=== PATIENT | male | born 1965 ===

== ENCOUNTER 2017-05-18 06:41 | Emergency (ER) | payer MEDICAID, OTHER ==
[2017-05-18 06:48] VITALS: BMI 39.1
[2017-05-18 06:50] VITALS: BP 143/88; PULSE 68; RESP 15; TEMP 98; O2SAT 98
--- NOTE | 2017-05-18 07:25 | ED PDOC ---
Lower Extremity Pain/Injury Time Seen by Provider: 05/18/17 07:05 Chief Complaint (Nursing): Lower Extremity Problem/Injury Chief Complaint (Provider): bilateral knee pain History Per: Patient History/Exam Limitations: no limitations Onset/Duration Of Symptoms: Other (x 3 years ) Additional Complaint(s): Kianna Begum is a 52 year old male, with no previous medical history, who presents to the ED with complaints of bilateral knee pain ongoing for 3 years worsening for the past 2 weeks after heavy lifting of marble approximately 1500- 2500 lbs. He denies any numbness or tingling and did not take anything for pain. PMD: none provided Past Medical History Reviewed: Historical Data, Nursing Documentation, Vital Signs Vital Signs: Last Vital Signs Temp 98.0 F 05/18/17 06:48 Pulse 68 05/18/17 06:48 Resp 15 05/18/17 06:48 BP 143/88 05/18/17 06:48 Pulse Ox 98 05/18/17 06:48 - Medical History PMH: No Chronic Diseases - Family History Family History: States: Unknown Family Hx - Home Medications Home Medications: Ambulatory Orders Medication Instructions Recorded Naproxen [Naprosyn] 500 mg PO BID PRN #15 tablet 05/18/17 - Allergies Allergies/Adverse Reactions: Allergies Allergy/AdvReac Type Severity Reaction Status Date / Time No Known Allergies Allergy Verified 05/18/17 06:47 Review of Systems ROS Statement: Except As Marked, All Systems Reviewed And Found Negative Musculoskeletal: Positive for: Leg Pain (knee pain ) Neurological: Negative for: Weakness, Numbness Physical Exam - Reviewed Nursing Documentation Reviewed: Yes Vital Signs Reviewed: Yes - Physical Exam Appears: Positive for: Well, Non-toxic, No Acute Distress Skin: Positive for: Normal Color, Warm, Dry Extremity: Positive for: Normal ROM, Tenderness (mild to the infrapatellar region of the bilateral knees ), Capillary Refill (< 2 seconds ). Negative for : Pedal Edema, Calf Tenderness, Deformity, Swelling, Other (erythema) Neurologic/Psych: Positive for: Alert, Oriented. Negative for: Motor/Sensory Deficits - ECG O2 Sat by Pulse Oximetry: 98 (RA) Pulse Ox Interpretation: Normal - Other Rad XR bilateral knees X-Ray: Interpreted by Me (Negative.) Medical Decision Making Medical Decision Making: Initial Plan: * x-ray knees bilateral * reevaluation Patient is refusing any pain medication in the ED at this time. Scribe Attestation: Documented by Earnestine Robison, acting as a scribe for Earnestine Julian MD. Provider Scribe Attestation: All medical record entries made by the Scribe were at my direction and personally dictated by me. I have reviewed the chart and agree that the record accurately reflects my personal performance of the history, physical exam, medical decision making, and the department course for this patient. I have also personally directed, reviewed, and agree with the discharge instructions and disposition. Disposition - Clinical Impression Clinical Impression: Bilateral chronic knee pain - Disposition Referrals: [facility] [Outside] Disposition: Routine/Home Disposition Time: 09:17 Condition: STABLE Prescriptions: Naproxen [Naprosyn] 500 mg PO BID PRN #15 tablet PRN Reason: Pain, Moderate (4-7) Instructions: Knee Pain (ED) Forms: [facility] (Sinhala)
--- NOTE | 2017-05-18 15:37 | RAD ---
PROCEDURE: Bilateral Knee Radiographs. HISTORY: Pain X 3 years COMPARISON: None available. FINDINGS: BONES: Right Knee: No acute displaced fracture. Mild degenerative changes. Left Knee: No acute displaced fracture. Mild degenerative changes. JOINTS: Right Knee: No dislocation. Left knee: No dislocation. SOFT TISSUES: Right Knee: Unremarkable. No evidence of radiopaque foreign body. Left Knee: Unremarkable. No evidence of radiopaque foreign body. JOINT EFFUSION: Right Knee: Small suprapatellar joint effusion. Left Knee: Small suprapatellar joint effusion OTHER FINDINGS: None. IMPRESSION: Small bilateral suprapatellar joint effusions. Degenerative changes.
== END 2017-05-18 09:28 | disposition home or self-care (01) ==
LOC: H.ER 06:41
DX: G89.29 Other chronic pain (principal)